=== PATIENT | female | born 1930 | race Caucasian/White ===

== ENCOUNTER 2020-07-10 19:43 | Observation (INO) ==
[2020-07-10] MEDS ORDERED: Acetaminophen 325 MG TABLET PO PRN (21:43)
[2020-07-10] MEDS ORDERED: Ondansetron 4 MG/2 ML VIAL IVP PRN (21:43)
[2020-07-10] MEDS ORDERED: Naloxone 0.4 MG/ML INJ IVP PRN (21:43)
[2020-07-10] MEDS ORDERED: levoFLOXacin 750 MG/150 ML 750 MG/150 ML BAG IVPB SCH (22:00)
[2020-07-10] MEDS: 0.9 % Sodium Chloride 1,000 ML IVC SCH (22:36)
[2020-07-10] MEDS ORDERED: *HR* LORazepam 1 MG TABLET PO PRN (22:39)
[2020-07-11] MEDS: Morphine Sulfate 2 MG/ML SYRINGE IVP PRN ×2 (01:51→05:21)
[2020-07-11] MEDS: Atropine Sulfate 1% 40 DROP/2 ML BOTTLE SL PRN ×2 (01:52→05:21)
[2020-07-11] MEDS: 0.9 % Sodium Chloride 1,000 ML IVC SCH (07:41)
[2020-07-11] MEDS ORDERED: E-Z-HD (BARIUM SULF) SUSPENSION PO ONE (13:47)
[2020-07-11] MEDS ORDERED: E-Z-PAQUE (BARIUM SULF) SUSP 1 BOTTLE PO ONE (13:47)
[2020-07-11 15:49] VITALS: BP 173/72
[2020-07-12] MEDS ORDERED: levoFLOXacin 750 MG/150 ML 750 MG/150 ML BAG IVPB SCH (22:00)
== END 2020-07-11 16:15 | disposition hospice, inpatient (51) ==
LOC: 2ANU → SUATTDRO 21:13
PROVIDERS: ADMIT Internal Medicine; ATTEND General Practice